=== PATIENT | female | born 1925 | race Caucasian/White ===

== ENCOUNTER 2016-05-10 20:39 | Emergency (ER) | payer MEDICARE, OTHER ==
[~2016-05-10] VITALS: Ht 160 cm; Wt 111.8 kg
[~2016-05-10 20:39] MED LIST: ACET325T51 PO; CA C1TAB86 PO; CHOL200047 PO; KELP1TAB2 PO; LACT1CAP44 PO; METO25TA99 PO; MULT-1018 PO; POTA99TA3 PO; PRAM0.5T10 PO; TRAM-14 PO; UBID30CA PO; WARF5TAB7 PO; ZYL100 PO
[2016-05-10 20:59] VITALS: BP 124/66; PULSE 81; RESP 18; O2SAT 92
--- NOTE | 2016-05-10 21:35 | ED.REPORT ---
HPI-Dyspnea / Wheezing Date of Service May 10, 2016 ED Provider: Tracey Knox MD This is an 89 year old female with a history of CHF, HTN, GERD presenting to the emergency department complaining of productive cough that began 3 days ago. Associated symptoms include sore throat. Cough continues to worsen with SOB, pt measured a fever today evening of 100.4 F. Denies chest pain, abdominal pain, nausea, vomiting, diarrhea, or myalgias. Nursing Notes Stated Complaint: COUGH, SORE THROAT, FEVER Chief Complaint: FLU/Cold Symptoms Nursing Notes Reviewed: Yes Allergies: Coded Allergies: codeine (Verified Allergy, Severe, 05/10/16) melatonin (Verified Allergy, Severe, 05/10/16) procaine (Verified Allergy, Severe, 05/10/16) morphine (Verified Allergy, Unknown, 05/10/16) Uncoded Allergies: LATEX (Ingr Allergy) (Allergy, Unknown, Y, 08/10/03) RASH OPIATES (Allergy, Unknown, 08/05/14) LOCAL ANESTHETICS - MAGGIE-TYPE (Ingr ADR) (Adverse Reaction, Unknown, Y, 02/02) AGITATION Scheduled Allopurinol (Allopurinol) 100 Mg Tablet 200 MG PO DAILY Azithromycin (Zithromax) 250 Mg Tablet 250 MG PO DAILY Ca Carb & Gluc/Mag Ox & Gluc (Calcium Magnesium Caplet) 1 Each Tablet 1 EACH PO DAILY Cholecalciferol (Vitamin D3) (Vitamin D3) 2,000 Unit Capsule 2,000 UNIT PO DAILY Kelp (Kelp) 1 Each Tablet 1 EACH PO DAILY Lactobacillus Acidophilus (Acidophilus Lactobacillus) 1 Each Capsule 2 EACH PO BID Metoprolol Succinate ER (Metoprolol Succinate ER) 25 Mg Tab.er.24h 25 MG PO DAILY Multivitamin (Multi Vitamin Daily) 1 Each Tablet 1 EACH PO DAILY Potassium Gluconate (Potassium Gluconate) 99 Mg Tablet 99 MG PO DAILY Pramipexole Dihydrochloride (Pramipexole Dihydrochloride) 0.5 Mg Tablet 0.5 MG PO HS Ubidecarenone (Coenzyme Q10) 30 Mg Capsule 90 MG PO BID Warfarin Sodium (Warfarin Sodium) 5 Mg Tablet 5 MG PO DAILY Scheduled PRN Acetaminophen (Acetaminophen) 325 Mg Tablet 325 MG PO Q4H PRN PRN For Pain Tramadol (Ultram) 50 Mg Tablet 50 MG PO QID PRN PRN Pain General Time Seen by MD: 21:31 Chief Complaint Cough Hx Obtained From: Patient Arrived By: Walk-in Sudden in Onset?: Yes Onset Occurred: 3 days ago Symptom Duration: Since onset Severity: Current: No pain currently Pertinent Negative: Pt denies other symptoms Recent Healthcare: No recent doctor visit, No recent hospitalization Similar Sx Previous: No Past Medical History Past Medical History Obstructive sleep apnea Restless leg syndrome Chronic renal failure Reports: Congestive heart failure, GERD, Hypertension Reports: Atrial fibrillation Past Surgical History L hip replaced Smoking History Never Smoker Ambulatory Status Walker Review of Systems Constitutional: Reports: Chills, Fever Ears / Nose / Throat: Reports: Sore throat Respiratory: Reports: Prod cough, clear, Shortness of breath Cardiovascular: Denies: Chest pain Complete sys rev & neg: except as marked. GI: Denies: Abdominal pain, Diarrhea, Nausea, Vomiting Physical Exam Initial Vital Signs Vital Signs (First) Date Time Temp Pulse Resp B/P Pulse Ox O2 Delivery O2 Flow Rate FiO2 05/10/16 20:59 37 81 18 124/66 92 Room Air 05/10/16 22:04 3 Initial VS: Reviewed Head / Eyes: Atraumatic, Normocephalic, PERRL ENT: Mucous membranes moist, Conjunctiva normal, No scleral icterus Abdomen / GI: Soft, Non-tender, No guarding, No rebound, No distention Extremities: Vascular intact, Neuro intact, No tenderness Skin: Warm, Dry, No cyanosis Neurologic: Alert, Oriented, Nonfocal Psychiatric: Mood/affect normal, Behavior normal, Normal thought content General/Constitutional: Awake, Alert Appearance / Presentation: Positive: Obese Wheezing / Retractions: Positive: Wheeze insp/exp diffuse Diffusely coarse breath sounds throughout Cardiovascular: Regular rhythm, Heart sounds NL, No gallop, No murmurs, No rubs , Cap refill not delayed Lower Ext Edema: Positive: Bilateral 1+, Pitting Interpretation & Diagnostics Lab Results Interpretation Result Diagram: 05/10/16214405/10/162144 Test 05/10/16 21:45 White Blood Count 8.7th/mm3 (3.8-10.1) Red Blood Count 4.19mil/mm3 (3.90-5.20) Hemoglobin 12.8g/dL (12.0-15.6) Hematocrit 40.0% (35.0-46.0) Mean Corpuscular Volume 95.5fL (81-100) Mean Corpuscular Hemoglobin 30.5pg (27.0-35.0) Mean Corpuscular Hemoglobin Concent 32.0% (32.0-37.0) Red Cell Distribution Width 15.5% (12.3-15.4) Platelet Count 233bil/L (150-400) Neutrophils (%) (Auto) 67.9% (40-74) Lymphocytes (%) (Auto) 11.9% (14-46) Monocytes (%) (Auto) 14.4% (4-12) Eosinophils (%) (Auto) 4.8% (0-5) Basophils (%) (Auto) 0.9% (0-3) Sodium Level 138mEq/L (134-144) Potassium Level 3.7mEq/L (3.5-5.2) Chloride Level 97mEq/L (97-108) Carbon Dioxide Level 28mmol/L (18-29) Blood Urea Nitrogen 26mg/dL (8-27) Creatinine 1.27mg/dL (0.57-1.00) Estimat Glomerular Filtration Rate 57mL/min (>59) Glucose Level 109mg/dL (60-99) Calcium Level 9.2mg/dL (8.5-10.1) Magnesium Level 2.1mg/dL (1.6-2.6) Total Bilirubin 0.2mg/dL (0.0-1.2) Aspartate Amino Transf (AST/SGOT) 20U/L (0-50) Alanine Aminotransferase (ALT/SGPT) 19U/L (0-32) Alkaline Phosphatase 90U/L (25-165) Troponin T 0.010ug/L (0.0-0.011) Pro-B-Type Natriuretic Peptide 337.1pg/mL (0-738) Total Protein 7.3g/dL (6.4-8.4) Albumin 3.8g/dL (3.4-5.0) Hold Diane Top Tube Received (Received) ECG Interpretation ECG Interpretation: NSR at a rate of 74 low quality ecg no ST elevation t-wave inversion in v1, v2, v3 unchanged from prior Time: 22:59 X-Ray Chest Interpretation Chest Xray Interpretation: Mild pulmonary congestion Interpretation / Wet Read by: Wet read ED physician Re-Eval/Medical Decision Med Decision/Clinical Course 89-year-old female with extensive past medical history including CHF here with shortness of breath and fever. Differential diagnosis includes but is not limited to influenza versus pneumonia versus viral upper respiratory infection versus pleural effusion versus CHF exacerbation. BNP is not elevated. CBC and CMP are unremarkable aside from mild baseline renal insufficiency. Flu swab was negative. Chest x-ray does not show focal pneumonia. Patient received 1 DuoNeb in the emergency department with improvement in her symptoms. She is feeling better. Her daughter will stay with her overnight tonight. They have been given very strict return precautions. She was given her first dose of azithromycin in the emergency department, and a prescription for the remainder of her [place] to go home with. She is aware and amenable to discharge at this time. Re-Evaluation/Progress #1: Time of Eval: 23:01 Re-Evaluation/Progress Note: Re-checked, discussed lab and imaging results. Disposition pending condition after nebulizer. Re-Evaluation/Progress #2: Time of Eval: 23:25 )( Re-Eval Resp / Chest: Mild wheezing, Mild respiratory distress, No rhonchi Treatment Summary: Albuterol nebulizer x 1 Patient Status: Condition improved Counseled Regarding: Diagnosis, Lab results, Need for follow-up Discharge & Departure Impression: Primary Impression: Upper respiratory infection URI type: unspecified URI Qualified Code: J06.9 - Acute upper respiratory infection, unspecified Additional Impression: Chronic renal insufficiency Chronic kidney disease stage: unspecified stage Qualified Code: N18.9 - Chronic kidney disease, unspecified Disposition: Home Discharge Condition All VS Reviewed: Yes Condition: Stable Patient Instructions: Upper Respiratory Infection (ED) Additional Instructions: Take azithromycin as prescribed. Follow up with your primary care provider, call tomorrow to schedule an appointment. Return to the emergency department if you develop any new or worsening symptoms. Referrals: Janet Marcelino (PCP) Scribe Attestation Portions of this note were transcribed by Saulo Rivera. I, Dr. Knox personally performed the history, physical exam and medical decision-making; I reviewed and confirmed the accuracy of the information in the transcribed note. Signed by: Saulo Rivera. 05/10/2016, 23:00. Tracey Knox MD May 10, 2016 21:35 SAULO RIVERA May 10, 2016 21:36
[2016-05-10] MEDS ORDERED: Albuterol-Ipratropium 3 mL Inhalation Solution NEB ONE (21:45)
[2016-05-10 22:01] LABS: BASOPHILS % (AUTO) 0.9 % (0-3); EOSINOPHILS % (AUTO) 4.8 % (0-5); MONOCYTES % (AUTO) 14.4 % (4-12); Mean Corpuscular Hemoglobin 30.5 pg (27.0-35.0); Mean Corpuscular Volume 95.5 fL (81-100); NEUTROPHILS % (AUTO) 67.9 % (40-74); Platelet Count 233 bil/L (150-400)
[2016-05-10 22:04] VITALS: BP 122/55; PULSE 72; RESP 26; O2SAT 94
[2016-05-10 22:22] LABS: TROPONIN T 0.01 ug/L (0.0-0.011)
[2016-05-10 22:33] LABS: Magnesium 2.1 mg/dL (1.6-2.6)
[2016-05-10 22:59] VITALS: PULSE 86; RESP 20; O2SAT 96
[2016-05-10] MEDS ORDERED: ZIT250 PO (23:28)
[2016-05-10 23:40] VITALS: BP 152/53; PULSE 82; RESP 26; O2SAT 90
--- NOTE | 2016-05-11 09:01 | DRSVH ---
PROCEDURE: X-RAY CHEST, TWO VIEWS ([id number]) INDICATIONS: cough TECHNIQUE: 2 views of the chest were acquired. COMPARISON: [facility], CR, XR CHEST 1VW (PORTABLE), 01/21/2016, 23:04. FINDINGS: Surgical changes and devices: None. Lungs and pleura: No pleural effusions or pneumothorax. Airspace opacity in the right lung base and scarring versus subsegmental atelectasis in the mid to lower left lung which is unchanged. Mediastinum: Mediastinal contours are normal. Heart size is normal. Bones and chest wall: No suspicious bony abnormalities. Soft tissues appear unremarkable. IMPRESSION: Right basilar atelectasis versus aspiration or pneumonia. Dictated by: Dinh Hernandez RR Interpreted: Homero Robles MD on 05/11/2016 at 9:00 Transcribed by: CHANCE on 05/11/2016 at 9:01 Approved by: Homero Robles M.D. on 05/11/2016 at 13:27
== END 2016-05-10 23:43 | disposition home or self-care (01) ==
LOC: SED 20:39
DX: J06.9 Acute upper respiratory infection, unspecified (principal); N18.9 Chronic kidney disease, unspecified; I12.9 Hypertensive chronic kidney disease with stage 1 through stage 4 chronic kidney disease, or unspecified chronic kidney disease; I50.9 Heart failure, unspecified; K21.9 Gastro-esophageal reflux disease without esophagitis; I48.91 Unspecified atrial fibrillation; Z79.01 Long term (current) use of anticoagulants; Z88.5 Allergy status to narcotic agent; Z88.8 Allergy status to other drugs, medicaments and biological substances; Z88.4 Allergy status to anesthetic agent
CPT/HCPCS: 36415; 71020; 80053; 83735; 83880; 84484; 85025; 87804; 93005; 94664; 99285; J7620

== ENCOUNTER 2016-09-11 22:06 | Emergency (ER) | payer MEDICARE, OTHER ==
[~2016-09-11] VITALS: Ht 160 cm; Wt 109.5 kg
[~2016-09-11 22:06] MED LIST changes: +ZIT250 PO
[2016-09-11 22:11] VITALS: BP 110/45; PULSE 68; RESP 16; O2SAT 93
[2016-09-11] MEDS ORDERED: POTA8CAP10 PO (22:35)
[2016-09-11] MEDS ORDERED: ALLO300T2 PO (22:35)
[2016-09-11] MEDS ORDERED: ALBU8.5H2 INHALATION (22:35)
[2016-09-11] MEDS ORDERED: WARF5TAB7 PO ×2 (22:35)
[2016-09-11] MEDS ORDERED: NITR0.4T6 SL (22:35)
[2016-09-11] MEDS ORDERED: FRSM80T PO (22:35)
[2016-09-11] MEDS ORDERED: COLC0.6T55 PO (22:35)
--- NOTE | 2016-09-11 22:36 | ED.REPORT ---
HPI-Chest Pain 40 and Over Date of Service Sep 11, 2016 ED Provider: Elio Penny MD Patient is an 89 year old female with a history of CHF, atrial fibrillation and hypertension who presents to the ED via EMS due to an episode of chest pain that last 15 minutes. The patient reports that she was watching TV when the pain started and she rated the pain as a 7/10. She gave herself 3 nitro at home , which took the pain down to a 2/10. Prior to arrival to the ED, EMS gave her 324 ASA. The patient now reports that her chest pain has resolved. Nursing Notes Stated Complaint: CHEST PAIN Chief Complaint: Chest Pain Nursing Notes Reviewed: Yes Allergies: Coded Allergies: codeine (Verified Allergy, Severe, 09/11/16) melatonin (Verified Allergy, Severe, 09/11/16) procaine (Verified Allergy, Severe, 09/11/16) morphine (Verified Allergy, Unknown, 09/11/16) Uncoded Allergies: LATEX (Ingr Allergy) (Allergy, Unknown, Y, 08/10/03) RASH OPIATES (Allergy, Unknown, 08/05/14) LOCAL ANESTHETICS - MAGGIE-TYPE (Ingr ADR) (Adverse Reaction, Unknown, Y, 02/02) AGITATION Scheduled Albuterol HFA (Proair HFA) 8.5 Gm Hfa.aer.ad 2 PUFFS INHALATION Q4H Allopurinol (Allopurinol) 300 Mg Tablet 300 MG PO DAILY Ca Carb & Gluc/Mag Ox & Gluc (Calcium Magnesium Caplet) 1 Each Tablet 1 EACH PO DAILY Cholecalciferol (Vitamin D3) (Vitamin D3) 2,000 Unit Capsule 2,000 UNIT PO DAILY Furosemide (Furosemide) 80 Mg Tab 80 MG PO BID Kelp (Kelp) 1 Each Tablet 1 EACH PO DAILY Metoprolol Succinate ER (Metoprolol Succinate ER) 25 Mg Tab.er.24h 37.5 MG PO DAILY Multivitamin (Multi Vitamin Daily) 1 Each Tablet 1 EACH PO DAILY Potassium Chloride (Potassium Chloride) 8 Meq Capsule.er 1 TAB PO DAILY Pramipexole Dihydrochloride (Pramipexole Dihydrochloride) 0.5 Mg Tablet 0.5 MG PO HS Tramadol (Ultram) 50 Mg Tablet 50 MG PO QID Warfarin Sodium (Warfarin Sodium) 5 Mg Tablet 5 MG PO DAILY Warfarin Sodium (Warfarin Sodium) 5 Mg Tablet 5 MG PO SATURDAY Warfarin Sodium (Warfarin Sodium) 5 Mg Tablet 7.5 MG PO DAILY EXCEPT THURSDAYS Scheduled PRN Acetaminophen (Acetaminophen) 325 Mg Tablet 325 MG PO Q4H PRN PRN For Pain Colchicine (Colchicine) 0.6 Mg Tablet 1 TAB PO DAILY PRN PRN GOUT Nitroglycerin SL (Nitroglycerin SL) 0.4 Mg Tab.subl 0.4 MG SL PRN For Chest Pain General Time Seen by MD: 22:34 Chief Complaint Chest pain Hx Obtained From: Patient Arrived By: Ambulance Sudden in Onset?: Yes Onset Occurred: Just prior to arrival Radiation: : Does not radiate Severity: Current: No pain currently Severity: Maximum: Pain level 7 out of 10 Recent Healthcare: No recent hospitalization, Recent doctor visit Similar Sx Previous: Yes Past Medical History Past Medical History Obstructive sleep apnea Restless leg syndrome Chronic renal failure Reports: Congestive heart failure, GERD, Hypertension Reports: Atrial fibrillation Past Surgical History L hip replaced Smoking History Never Smoker Social History Other Social History: Good social support Ambulatory Status Walker Review of Systems Constitutional: Denies: Chills, Fever Respiratory: Denies: Non-productive cough, Shortness of breath, Wheezing Cardiovascular: Reports: Chest pain Musculoskeletal: Denies: Back pain, Extremity pain Skin: Denies Itching, Denies Rash Neurologic: Denies: Numbness, Weakness Complete sys rev & neg: except as marked. Physical Exam Initial Vital Signs Vital Signs (First) Date Time Temp Pulse Resp B/P Pulse Ox O2 Delivery O2 Flow Rate FiO2 09/11/16 22:11 36.8 68 16 110/45 93 Room Air Initial VS: Reviewed, Vital signs normal General/Constitutional: Awake, Alert, No acute distress Respiratory / Chest: Atraumatic, Breath sounds NL, Breath sounds = bilat, No respiratory distress Cardiovascular: Heart rate NL, Regular rhythm, Heart sounds NL Abdomen: Atraumatic, Soft, Non-tender Skin: Atraumatic, Color NL, No rash, Warm, Dry Neurologic: Oriented X3, Speech NL, No motor deficits, No sensory deficits Psychiatric: Affect NL, Mood NL Head / Eyes: Atraumatic, Normocephalic, PERRL, EOMI Interpretation & Diagnostics Lab Results Interpretation Result Diagram: 09/11/16 2243 09/11/16 2243 Test 09/11/16 22:43 09/12/16 00:56 White Blood Count 8.3th/mm3 (3.8-10.1) Red Blood Count 4.25mil/mm3 (3.90-5.20) Hemoglobin 13.0g/dL (12.0-15.6) Hematocrit 41.1% (35.0-46.0) Mean Corpuscular Volume 96.7fL (81-100) Mean Corpuscular Hemoglobin 30.6pg (27.0-35.0) Mean Corpuscular Hemoglobin Concent 31.6% (32.0-37.0) Red Cell Distribution Width 15.8% (12.3-15.4) Platelet Count 228bil/L (150-400) Neutrophils (%) (Auto) 57.5% (40-74) Lymphocytes (%) (Auto) 25.3% (14-46) Monocytes (%) (Auto) 12.8% (4-12) Eosinophils (%) (Auto) 3.4% (0-5) Basophils (%) (Auto) 0.8% (0-3) Sodium Level 138mEq/L (134-144) Potassium Level 3.7mEq/L (3.5-5.2) Chloride Level 98mEq/L (97-108) Carbon Dioxide Level 24mmol/L (18-29) Blood Urea Nitrogen 43mg/dL (8-27) Creatinine 1.29mg/dL (0.57-1.00) Estimat Glomerular Filtration Rate 56mL/min (>59) Glucose Level 138mg/dL (60-99) Calcium Level 9.2mg/dL (8.5-10.1) Magnesium Level 2.5mg/dL (1.6-2.6) Total Bilirubin 0.2mg/dL (0.0-1.2) Aspartate Amino Transf (AST/SGOT) 27U/L (0-50) Alanine Aminotransferase (ALT/SGPT) 29U/L (0-32) Alkaline Phosphatase 122U/L (25-165) Total Protein 7.7g/dL (6.4-8.4) Albumin 4.2g/dL (3.4-5.0) Troponin T < 0.010ug/L (0.0-0.011) Lab Results Interpretation: Mild elevation of nonfasting glucose and BUN/creatinine. Negative troponin 2 ECG Interpretation ECG Interpretation: nonspecific intraventricular conduction delay nonspecific T wave abnormalities, anterior leads Time: 22:20 Interpreted by: ED physician Normal ECG Interpretation: Normal rate (67), Normal sinus rhythm X-Ray Chest Interpretation Chest Xray Interpretation: rotated but no sign of acute disease View: Portable, 1 view Interpretation / Wet Read by: Wet read ED physician Re-Eval/Medical Decision Med Decision/Clinical Course 89-year-old with brief chest pain of around 15 minutes relieved by nitroglycerin. She had no recurrence. She has no evidence of ischemic changes on her EKG and no evidence of cardiac injury. Time of Eval: 23:42 Patient Status: Condition resolved Re-Evaluation/Progress Note: Discussed X-ray results and plan for repeat trop. Time of Eval: 01:54 Re-Evaluation/Progress Note: Discussed results and plan for discharge. The patient understands and agrees to the plan. All questions were addressed. Counseled Regarding: Diagnosis, Lab results, Need for follow-up, When/why to return to ED Discharge & Departure Primary Impression: Chest pain with low risk of acute coronary syndrome Disposition: Home Discharge Condition All VS Reviewed: Yes Condition: Stable Patient Instructions: Chest Pain (ED) Additional Instructions: It does not appear that this pain represents any injury to the heart. Your EKG and troponin are negative 2.. Referrals: Janet Marcelino (PCP) Alexibandi Attestation Portions of this note were transcribed by Imani Correa. I, Dr. Penny personally performed the history, physical exam and medical decision-making; I reviewed and confirmed the accuracy of the information in the transcribed note. Signed by:Clare Adams, 09/12/16 and 0155 copies to: Janet Marcelino Howard L MD Sep 11, 2016 22:36 Kalpana Correa Sep 11, 2016 22:45
[2016-09-11 22:46] LABS: BASOPHILS % (AUTO) 0.8 % (0-3); EOSINOPHILS % (AUTO) 3.4 % (0-5); MONOCYTES % (AUTO) 12.8 % (4-12); Mean Corpuscular Hemoglobin 30.6 pg (27.0-35.0); Mean Corpuscular Volume 96.7 fL (81-100); NEUTROPHILS % (AUTO) 57.5 % (40-74); Platelet Count 228 bil/L (150-400)
[2016-09-11 23:21] LABS: Magnesium 2.5 mg/dL (1.6-2.6); TROPONIN T 0.01 ug/L (0.0-0.011)
[2016-09-12 00:26] VITALS: BP 101/47; PULSE 66; RESP 16; O2SAT 94
[2016-09-12 01:58] VITALS: BP 97/56; PULSE 67; RESP 24; O2SAT 94
--- NOTE | 2016-09-12 08:36 | DRSVH ---
PROCEDURE: X-RAY CHEST ONE VIEW, PORTABLE ([id number]) INDICATIONS: chest pain TECHNIQUE: One view of the chest was acquired. COMPARISON: [facility], CR, XR CHEST 2VW, 05/10/2016, 22:06. [facility], CR, XR CHEST 1VW (PORTABLE), 01/21/2016, 23:04. FINDINGS: Surgical changes and devices: None. Lungs and pleura: Mild scarring versus atelectasis on the lateral margin of the left lung base is ileana ntified. There is no focal consolidation, effusion, or pneumothorax. Mediastinum: Mediastinal contours appear normal. Heart size is normal. There is aortic atheroscler osis. Bones and chest wall: No suspicious bony lesions. Degenerative changes of the imaged spine and shou lders are noted. Overlying soft tissues appear unremarkable. IMPRESSION: Mild left basilar scarring/atelectasis. No pneumonia or overt failure is evident. Dictated by: Eugene Gomez M.D. on 09/12/2016 at 8:33 Approved by: Eugene Gomez M.D. on 09/12/2016 at 8:34
== END 2016-09-12 01:59 | disposition home or self-care (01) ==
LOC: EDBD 22:06 → SED 22:06
DX: R07.9 Chest pain, unspecified (principal); I13.0 Hypertensive heart and chronic kidney disease with heart failure and stage 1 through stage 4 chronic kidney disease, or unspecified chronic kidney disease; I50.9 Heart failure, unspecified; N18.9 Chronic kidney disease, unspecified; I48.91 Unspecified atrial fibrillation; K21.9 Gastro-esophageal reflux disease without esophagitis; Z79.01 Long term (current) use of anticoagulants; Z88.5 Allergy status to narcotic agent; Z88.8 Allergy status to other drugs, medicaments and biological substances

== ENCOUNTER 2016-10-21 11:45 | Emergency (ER) | payer MEDICARE, OTHER ==
[~2016-10-21] VITALS: Ht 160 cm; Wt 109.1 kg
[~2016-10-21 11:45] MED LIST changes: +ALBU8.5H2 INHALATION; +ALLO300T2 PO; +COLC0.6T55 PO; +FRSM80T PO; -LACT1CAP44 PO; +NITR0.4T6 SL; +POTA8CAP10 PO; -POTA99TA3 PO; -UBID30CA PO; -ZIT250 PO; -ZYL100 PO
[2016-10-21 11:48] VITALS: BP 170/85; PULSE 73; RESP 18; O2SAT 95
--- NOTE | 2016-10-21 12:00 | ED.REPORT ---
HPI-Chest Pain 40 and Over Date of Service Oct 21, 2016 ED Provider: Ronnie Jessica DO The pt is a 89 y/o female w/ a hx of chronic renal failure, CHF, Parkinsons disease, A-fib, and HTN presenting to the ED complaining of chest pain. She reports this episode lasting for an hour before the pain went away. The pt gets these types of episodes every 3-4 months which usually last for 30 minutes- one hour before going away. The pt took two nitroglycerin tablets before coming to the ED. The pt was seen in the ED 5 weeks ago for chest pain. Nursing Notes Stated Complaint: CHEST PAIN Chief Complaint: Chest Pain Nursing Notes Reviewed: Yes Allergies: Coded Allergies: codeine (Verified Allergy, Severe, 09/11/16) melatonin (Verified Allergy, Severe, 09/11/16) procaine (Verified Allergy, Severe, 09/11/16) morphine (Verified Allergy, Unknown, 09/11/16) Uncoded Allergies: LATEX (Ingr Allergy) (Allergy, Unknown, Y, 08/10/03) RASH OPIATES (Allergy, Unknown, 08/05/14) LOCAL ANESTHETICS - MAGGIE-TYPE (Ingr ADR) (Adverse Reaction, Unknown, Y, 02/02) AGITATION Scheduled Albuterol HFA (Proair HFA) 8.5 Gm Hfa.aer.ad 2 PUFFS INHALATION Q4H Allopurinol (Allopurinol) 300 Mg Tablet 300 MG PO DAILY Ca Carb & Gluc/Mag Ox & Gluc (Calcium Magnesium Caplet) 1 Each Tablet 1 EACH PO DAILY Cholecalciferol (Vitamin D3) (Vitamin D3) 2,000 Unit Capsule 2,000 UNIT PO DAILY Furosemide (Furosemide) 80 Mg Tab 80 MG PO BID Kelp (Kelp) 1 Each Tablet 1 EACH PO DAILY Metoprolol Succinate ER (Metoprolol Succinate ER) 25 Mg Tab.er.24h 37.5 MG PO DAILY Multivitamin (Multi Vitamin Daily) 1 Each Tablet 1 EACH PO DAILY Potassium Chloride (Potassium Chloride) 8 Meq Capsule.er 1 TAB PO DAILY Pramipexole Dihydrochloride (Pramipexole Dihydrochloride) 0.5 Mg Tablet 0.5 MG PO HS Tramadol (Ultram) 50 Mg Tablet 50 MG PO QID Warfarin Sodium (Warfarin Sodium) 5 Mg Tablet 5 MG PO DAILY Warfarin Sodium (Warfarin Sodium) 5 Mg Tablet 5 MG PO SATURDAY Warfarin Sodium (Warfarin Sodium) 5 Mg Tablet 7.5 MG PO DAILY EXCEPT THURSDAYS Scheduled PRN Acetaminophen (Acetaminophen) 325 Mg Tablet 325 MG PO Q4H PRN PRN For Pain Colchicine (Colchicine) 0.6 Mg Tablet 1 TAB PO DAILY PRN PRN GOUT Nitroglycerin SL (Nitroglycerin SL) 0.4 Mg Tab.subl 0.4 MG SL PRN For Chest Pain General Time Seen by MD: 11:59 Chief Complaint Chest pain Hx Obtained From: Patient Sudden in Onset?: Yes Onset Occurred: Just prior to arrival Symptom Duration: Since onset Recent Healthcare: No recent hospitalization, Recent doctor visit Similar Sx Previous: Yes Past Medical History Past Medical History Obstructive sleep apnea Restless leg syndrome Chronic renal failure UTI Arthritis Parkinsons disease Reports: Congestive heart failure, GERD, Hypertension Reports: Atrial fibrillation Past Surgical History L hip replaced Bilateral knee replacement Smoking History Never Smoker Social History Other Social History: Good social support Ambulatory Status Walker Review of Systems Cardiovascular: Reports: Chest pain Complete sys rev & neg: except as marked. Physical Exam Initial Vital Signs Vital Signs (First) Date Time Temp Pulse Resp B/P Pulse Ox O2 Delivery O2 Flow Rate FiO2 10/21/16 11:48 36.6 73 18 170/85 95 Room Air Initial VS: Reviewed Head / Eyes: Atraumatic, Normocephalic, PERRL ENT: Mucous membranes moist, Conjunctiva normal, No scleral icterus Neck: Supple, Non-tender, Full range of motion Skin: Warm, Dry, No cyanosis Neurologic: Alert, Oriented, Nonfocal Psychiatric: Mood/affect normal, Behavior normal, Normal thought content General/Constitutional: Awake, Alert Appearance / Presentation: Positive: Obese, morbidly Respiratory / Chest: Atraumatic, Breath sounds NL, Breath sounds = bilat Cardiovascular: Heart rate NL, Regular rhythm, Heart sounds NL Peripheral edema Abdomen: Atraumatic, Soft, Non-tender Interpretation & Diagnostics Lab Results Interpretation Result Diagram: 10/21/16 1217 10/21/16 1345 Test 10/21/16 12:17 10/21/16 12:50 10/21/16 13:45 White Blood Count 6.3th/mm3 (3.8-10.1) Red Blood Count 4.37mil/mm3 (3.90-5.20) Hemoglobin 13.3g/dL (12.0-15.6) Hematocrit 41.9% (35.0-46.0) Mean Corpuscular Volume 95.9fL (81-100) Mean Corpuscular Hemoglobin 30.4pg (27.0-35.0) Mean Corpuscular Hemoglobin Concent 31.7% (32.0-37.0) Red Cell Distribution Width 15.6% (12.3-15.4) Platelet Count 225bil/L (150-400) Neutrophils (%) (Auto) 56.1% (40-74) Lymphocytes (%) (Auto) 26.6% (14-46) Monocytes (%) (Auto) 11.3% (4-12) Eosinophils (%) (Auto) 4.9% (0-5) Basophils (%) (Auto) 0.6% (0-3) Prothrombin Time 20.7sec (8.1-12.5) Prothromb Time International Ratio 1.91ratio Sodium Level 139mEq/L (134-144) Potassium Level 4.1mEq/L (3.5-5.2) Chloride Level 100mEq/L (97-108) Carbon Dioxide Level 26mmol/L (18-29) Blood Urea Nitrogen 36mg/dL (8-27) Creatinine 1.32mg/dL (0.57-1.00) Estimat Glomerular Filtration Rate 54mL/min (>59) Glucose Level 114mg/dL (60-99) Calcium Level 9.7mg/dL (8.5-10.1) Magnesium Level 2.6mg/dL (1.6-2.6) Total Bilirubin 0.3mg/dL (0.0-1.2) Aspartate Amino Transf (AST/SGOT) 24U/L (0-50) Alanine Aminotransferase (ALT/SGPT) 20U/L (0-32) Alkaline Phosphatase 93U/L (25-165) Troponin T < 0.010ug/L (0.0-0.011) Pro-B-Type Natriuretic Peptide 219.9pg/mL (0-738) Total Protein 7.6g/dL (6.4-8.4) Albumin 3.7g/dL (3.4-5.0) ECG Interpretation ECG Interpretation: Rate 67 NSR Incomplete LBBB Low voltage, precordial leads Borderline ST elevation, lateral leads Time: 12:07 Interpreted by: ED physician X-Ray Chest Interpretation Chest Xray Interpretation: IMPRESSION: Bibasilar pneumonia. Follow up plain films of the chest are recommended to ensure resolution, and to exclude underlying or central malignancy. Dictated by: Kate Figueroa M.D. on 10/21/2016 at 12:35 Approved by: Kate Figueroa M.D. on 10/21/2016 at 12:36 View: Portable, 1 view Interpretation / Wet Read by: Interpret - Radiologist Re-Eval/Medical Decision Med Decision/Clinical Course After discussion with the patient, her symptoms seem mostly consistent with stable angina. I did offer a second troponin I she declined. Records were reviewed she did have a recent probably normal stress test less than a year ago. Return and follow-up precautions given. Source of Hx: Old records Time of Eval: 14:42 Re-Evaluation/Progress Note: Pt's case discussed. Offered and recommended a follow up 2 hour troponin but pt declined and would like to go home. F/U instructions and RTER warnings given. All questions addressed. Counseled Regarding: Diagnosis, Lab results, Need for follow-up, When/why to return to ED Discharge & Departure Primary Impression: Stable angina Disposition: Home Discharge Condition All VS Reviewed: Yes Condition: Stable Additional Instructions: Thank for you entrusting us with your care today. You were diagnosed with a stable angina. Your ECG and lab results were both negative for a heart attack. Please return to the emergency department if you experience any more episodes of chest pain or any new or worsening symptoms. Referrals: Janet Marcelino (PCP) Scribe Attestation Portions of this note were transcribed by Montana Flores. I, Dr. Jessica personally performed the history, physical exam and medical decision-making; I reviewed and confirmed the accuracy of the information in the transcribed note. Signed by : Clare Sethi, 10/21/16 and 1330. copies to: Janet Marcelino Timothy S DO Oct 21, 2016 12:00 Montana Flores Oct 21, 2016 13:12
[2016-10-21 12:30] LABS: BASOPHILS % (AUTO) 0.6 % (0-3); EOSINOPHILS % (AUTO) 4.9 % (0-5); MONOCYTES % (AUTO) 11.3 % (4-12); Mean Corpuscular Hemoglobin 30.4 pg (27.0-35.0); Mean Corpuscular Volume 95.9 fL (81-100); NEUTROPHILS % (AUTO) 56.1 % (40-74); Platelet Count 225 bil/L (150-400)
--- NOTE | 2016-10-21 12:37 | DRSVH ---
PROCEDURE: X-RAY CHEST ONE VIEW, PORTABLE ([id number]) INDICATIONS: SOB TECHNIQUE: One view of the chest was acquired. COMPARISON: [facility], CR, XR CHEST 1VW (PORTABLE), 09/11/2016, 22:36. FINDINGS: Surgical changes and devices: None. Lungs and pleura: No pleural effusions or pneumothorax. Moderate patchy bibasilar airspace opacities are present. Mediastinum: Mediastinal contours appear normal. Heart size is normal. Bones and chest wall: No suspicious bony lesions. Overlying soft tissues appear unremarkable. IMPRESSION: Bibasilar pneumonia. Follow up plain films of the chest are recommended to ensure resolut ion, and to exclude underlying or central malignancy. Dictated by: Kate Figueroa M.D. on 10/21/2016 at 12:35 Approved by: Kate Figueroa M.D. on 10/21/2016 at 12:36
[2016-10-21 13:18] LABS: INR 1.91 ratio
[2016-10-21 14:01] VITALS: BP 145/75; PULSE 65; RESP 23; O2SAT 97
[2016-10-21 14:36] LABS: Magnesium 2.6 mg/dL (1.6-2.6)
[2016-10-21 14:39] LABS: TROPONIN T < 0.010 ug/L (0.0-0.011)
[2016-10-21 15:18] VITALS: BP 136/60; PULSE 72; RESP 20; O2SAT 97
== END 2016-10-21 15:21 | disposition home or self-care (01) ==
LOC: SED 11:45
DX: I20.8 Other forms of angina pectoris (principal); I13.0 Hypertensive heart and chronic kidney disease with heart failure and stage 1 through stage 4 chronic kidney disease, or unspecified chronic kidney disease; I50.9 Heart failure, unspecified; N18.9 Chronic kidney disease, unspecified; K21.9 Gastro-esophageal reflux disease without esophagitis; Z79.01 Long term (current) use of anticoagulants; Z79.899 Other long term (current) drug therapy; Z88.5 Allergy status to narcotic agent; Z88.4 Allergy status to anesthetic agent; Z88.8 Allergy status to other drugs, medicaments and biological substances